=== PATIENT | female | born 1970 | race Caucasian/White ===

== ENCOUNTER 2018-11-07 09:41 | Day surgery (SDC) | payer OTHER ==
[2018-11-07] MEDS ORDERED: LIDOCAINE 4% SOLUTION 50 ML BTL (11:32)
[2018-11-07] MEDS ORDERED: FENTAnyl 50 MCG/ML VIAL (13:02)
[2018-11-07] MEDS ORDERED: MIDAZOLAM 1 MG/ML 2 ML INJ ×2 (13:02)
== END 2018-11-07 15:00 | disposition home or self-care (01) ==
LOC: GIL 09:41
DX: Z12.11 Encounter for screening for malignant neoplasm of colon (principal); K29.30 Chronic superficial gastritis without bleeding; R10.13 Epigastric pain
CPT/HCPCS: 43239; 88305; 88312